=== PATIENT | female | born 1955 | race Caucasian/White ===

== ENCOUNTER 2021-05-03 00:55 | Inpatient (IN) | payer MEDICARE ==
[2021-05-03] VITALS (15 sets, daily range): BP systolic 126–148; BP diastolic 72–83
[~2021-05-03] VITALS: Ht 147.3 cm; Wt 52.3 kg
[2021-05-03 02:29] LABS: BASOPHILS # (AUTO) 0.1 X10'3 (0-0.2); BASOPHILS % (AUTO) 0.5 % (0-1); EOSINOPHILS % (AUTO) 0.2 % (0-6); HEMATOCRIT 41.8 % (35.0-45.0); HEMOGLOBIN 14.5 g/dl (12.0-16.0); LYMPHOCYTES # (AUTO) 1.1 X10'3 (1.1-4.8); LYMPHOCYTES % (AUTO) 7.6 % (21-51); MEAN CORPUSCULAR HEMOGLOBIN 31.4 PG (27.0-31.0); MEAN CORPUSCULAR HGB CONC 34.8 g/dL (33.0-36.5); MEAN CORPUSCULAR VOLUME 90.4 FL (78-98); MEAN PLATELET VOLUME 7.5 FL (7.4-10.4); MONOCYTES # (AUTO) 0.4 X10'3 (0-0.9); MONOCYTES % (AUTO) 3.1 % (2-12); NEUTROPHILS # (AUTO) 12.7 X10'3 (1.8-7.7); NEUTROPHILS % (AUTO) 88.6 % (42-75); PLATELET COUNT 254 X10'3 (140-440); RED BLOOD COUNT 4.62 X10'6 (4.20-5.60); RED CELL DISTRIBUTION WIDTH 12.9 % (11.5-14.5); WHITE BLOOD COUNT 14.3 X10'3 (4.5-11.0)
[2021-05-03 02:40] LABS: ALANINE AMINOTRANSFERASE 30 U/L (12-78); ALBUMIN 4.5 G/DL (3.4-5.0); ALBUMIN/GLOBULIN RATIO 1.1 (1.1-1.5); ALKALINE PHOSPHATASE 96 IU/L (46-116); ANION GAP 9 (8-16); ASPARTATE AMINO TRANSFERASE 20 U/L (10-37); BLOOD UREA NITROGEN 16 MG/DL (7-18); BUN/CREATININE RATIO 16.7 (6.6-38.0); CALCIUM 10.2 MG/DL (8.5-10.1); CHLORIDE 103 MMOL/L (99-107); CREATININE 0.96 MG/DL (0.40-0.90); GLUCOSE 126 MG/DL (70-104); SODIUM 140 MMOL/L (135-145); TOTAL CARBON DIOXIDE 28.1 MMOL/L (24-32); TOTAL PROTEIN 8.6 G/DL (6.4-8.2); eGFR 59 ML/MIN
[2021-05-03 02:45] LABS: LIPASE 166 U/L (73-393)
[2021-05-03] MEDS ORDERED: iohexol 300mg/ml 100ml inj. ONE (04:19)
[2021-05-03 04:41] LABS: CLARITY,URINE CLEAR (Clear); COLOR,URINE YELLOW (Yellow); PH,URINE 6.5 (4.8-8.0); PROTEIN,URINE NEGATIVE (Neg); UA COLLECTION TYPE CLN CATCH MIDSTREAM
[2021-05-03 04:42] LABS: GLUCOSE, URINE NEGATIVE (Neg); KETONES,URINE NEGATIVE (Neg); LEUKOCYTE ESTERASE ,URINE NEGATIVE (Neg); NITRITES, URINE NEGATIVE (Neg); OCCULT BLOOD,URINE TRACE-LYSED (Neg); UROBILINOGEN,URINE 0.2 E.U/dL (0.2-1.0)
[2021-05-03 04:51] LABS: HYALINE CASTS 0-3 /LPF (NEGATIVE); SQUAMOUS EPITHELIAL CELL,UR FEW /LPF (FEW)
[2021-05-03 04:54] LABS: BACTERIA,URINE NONE SEEN /HPF (Neg); MUCUS STRANDS NONE SEEN /LPF (Neg); RBC,URINE NONE SEEN /HPF (0-2); WBC,URINE 0-4 /HPF (0-4)
[2021-05-03] MEDS ORDERED: ampicillin/sulbac 3gm/NS 100ml 100 ML IV ONE (06:35)
[2021-05-03] MEDS ORDERED: ampicillin/sulbac 3gm/NS 100ml 100 ML IV SCH (08:00)
[2021-05-03] MEDS ORDERED: magnesium hydroxide 30ml (MOM) UD suspension PO PRN (08:10)
[2021-05-03] MEDS ORDERED: magnesium 4gm in 100ml NS 100 ML IV PRN (08:10)
[2021-05-03] MEDS ORDERED: HYDROmorphone/PF 0.2 MG/ML SYRINGE IV PRN (08:10)
[2021-05-03] MEDS ORDERED: potassium Cl 20 mEq SR tablet PO PRN ×2 (08:10)
[2021-05-03] MEDS ORDERED: potassium Cl 40MEQ/1/2NS 520ml 520 ML IV PRN ×2 (08:10)
[2021-05-03] MEDS ORDERED: acetaminophen 325mg tablet PO PRN (08:10)
[2021-05-03] MEDS ORDERED: magnesium 2GM in 50ml NS 50 ML IV PRN (08:10)
[2021-05-03] MEDS ORDERED: ondansetron/PF 4mg/2ml inj IV PRN ×2 (08:10→11:20)
[2021-05-03] MEDS ORDERED: HYDROmorphone inj. 0.5 MG/0.5 ML DISP.SYRIN IV PRN (08:10)
[2021-05-03] MEDS ORDERED: mag hydrox/Alum hydrox/simeth 30ml oral suspension PO PRN (08:10)
[2021-05-03 08:14] LABS: PARTIAL THROMBOPLASTIN TIME 28 SECONDS (22-32)
--- NOTE | 2021-05-03 08:23 | NUR ---
zohra shaw [id number] [phone]
[2021-05-03] MEDS ORDERED: pantoprazole 40 MG vial IV SCH (08:35)
[2021-05-03] MEDS ORDERED: hydrALAZINE 20mg/ml inj. IV PRN (08:35)
[2021-05-03] MEDS ORDERED: INDOCYANINE GREEN 25 MG/10 ML VIAL IV ONE (10:00)
[2021-05-03] MEDS: pantoprazole 40 MG vial IV SCH (10:30)
[2021-05-03] MEDS ORDERED: morphine 2 MG/ML inj. syringe IV PRN (11:20)
[2021-05-03] MEDS ORDERED: ringers solution, lacted 1,000 ML IV SCH (11:20)
[2021-05-03] MEDS ORDERED: proCHLORperazine 10 MG/2 ml inj IV PRN (11:20)
[2021-05-03] MEDS ORDERED: meperidine/PF 25mg/ml syringe IV PRN ×3 (11:20)
[2021-05-03] MEDS ORDERED: morphine 4 MG/ML inj SYRINge IV PRN (11:20)
[2021-05-03] MEDS ORDERED: BUPIVAcaine 0.5% inj/PF 30 ML ONE (11:30)
[2021-05-03] MEDS ORDERED: LIDOcaine 1% 30ml preserv. free vial ONE (11:30)
[2021-05-03] MEDS ORDERED: fentaNYL/PF 50MCG/1 ML 2ML syringe ONE (12:05)
[2021-05-03] MEDS ORDERED: midazolam 1 mg/ML 2ml injection ONE (12:06)
[2021-05-03] MEDS ORDERED: propofol inj 20 ML IV ONE (12:06)
[2021-05-03] MEDS ORDERED: rocuronium 10mg/ml inj IV ONE (12:06)
[2021-05-03] MEDS ORDERED: ceFAZolin 1000mg inj ONE ×2 (12:25)
[2021-05-03] MEDS ORDERED: ondansetron/PF 4mg/2ml inj ONE (13:23)
[2021-05-03] MEDS ORDERED: dexamethasone sod phosphate 4mg/ml inj. ONE (13:24)
[2021-05-03] MEDS ORDERED: glycopyrrolate 0.2mg/ml inj ONE (13:25)
[2021-05-03] MEDS ORDERED: neostigmine methylsulfate 1 MG/ML 10ml vial ONE (13:25)
[2021-05-03] MEDS ORDERED: HYDROcodone/acetaminophen 5mg/325mg tablet PO PRN (13:35)
[2021-05-03] MEDS ORDERED: HYDROcodone/acetaminophen 10/325mg tab PO PRN (13:35)
--- NOTE | 2021-05-03 13:50 | NUR ---
Received from OR via BED, accompanied by Anesthesiologist WICHO and report given by Anesthesiolgist. PT SLEEPY, OXYGENATING WELL ON 10 LPM O2 VIA MASK, NO RESP DISTRESS NOTED. PT DENIES NAUSEA OR PAIN AT THIS TIME. LARGE BANDAIDS TO ABD LAP SITES, CDI. SCDS ON, VSS.
--- NOTE | 2021-05-03 15:00 | NUR ---
Report called to receiving nurse. Transferred via BED Belongings WITH PT, TOP DENTURE, BAG OF CLOTHING, AND A PURSE. GRANDSON COMING TO GET PT PURSE. VSS, TOLERATING PO FLUIDS WELL. PT HAD NAUSEA EARLIER THAT WAS RELIEVED BY ZOFRAN. MEDICATED FOR INCISIONAL PAIN WITH IV DEMEROL. PT REPORTS GOOD RELIEF. TRANSFERRED TO [facility] IN STABLE CONDITION. Special Issues communicated to receiving nurse.
--- NOTE | 2021-05-03 15:30 | NUR ---
Pt. arrived to floor. Placed on post-op VS. VSS at this time. Pt. c/o no pain. Thirsty. Ice chips provided. Pt. swallowing well. Oriented to room. Call light and phone given to pt.
--- NOTE | 2021-05-03 16:45 | NUR ---
PAGER ID: [phone] MESSAGE: Sangita Dariana 346A Back from sx. DARTING her and she would like to be limited code no intubation please change orders. Thank you Fernanda [phone]
[2021-05-03] MEDS: piperacillin/tazo 4.5gm/100ml 100 ML IV SCH (16:54)
--- NOTE | 2021-05-03 18:30 | NUR ---
Patient in room [facility]AG[facility] 346. I have received report from Fernanda SILVER and had the opportunity to ask questions and assume patient care.
--- NOTE | 2021-05-03 18:37 | NUR ---
Gave report to Karen SILVER.
[2021-05-03] MEDS ORDERED: enoxaparin 40mg/0.4ml syringe SQ SCH (20:00)
[2021-05-03] MEDS: K and/or MAG REPLACEMENT MC SCH (20:00)
--- NOTE | 2021-05-03 20:16 | NUR ---
promotional table spacer PAGER ID: [phone] MESSAGE: Room 346A S/P surgery N Pettiit. Please can we switch the Eldred for Tylenol number please. This is what she states works for her. Do not want to give her dilaudid - doesn't need it. Mandy Jones [phone] ([phone] character message out of a maximum of [phone])
[2021-05-03] MEDS: docusate sod 100mg capsule PO SCH (20:33)
[2021-05-03] MEDS: heparin, porcine 5000 units/ml vial SQ SCH (20:33)
[2021-05-03] MEDS ORDERED: acetaminophen w/codeine (30MG) #3 tablet PO PRN (21:20)
[2021-05-04] VITALS: BP 130/75
[2021-05-04] MEDS: piperacillin/tazo 4.5gm/100ml 100 ML IV SCH ×3 (00:20→16:00)
[2021-05-04 04:00] VITALS: BP 121/63
--- NOTE | 2021-05-04 06:10 | NUR ---
Patient in room [facility]AGAN[facility] 346. I have received report from NADEEM Jones and had the opportunity to ask questions and assume patient care.
--- NOTE | 2021-05-04 06:30 | NUR ---
Problems reprioritized. Patient report given, questions answered & plan of care reviewed with Junie SILVER.
[2021-05-04 06:38] LABS: ALANINE AMINOTRANSFERASE 424 U/L (12-78); ALBUMIN 3.5 G/DL (3.4-5.0); ALBUMIN/GLOBULIN RATIO 0.9 (1.1-1.5); ALKALINE PHOSPHATASE 91 IU/L (46-116); ANION GAP 10 (8-16); ASPARTATE AMINO TRANSFERASE 587 U/L (10-37); BILIRUBIN,TOTAL 3.2 MG/DL (0.1-1.0); BLOOD UREA NITROGEN 10 MG/DL (7-18); BUN/CREATININE RATIO 8.3 (6.6-38.0); CALCIUM 9.1 MG/DL (8.5-10.1); CHLORIDE 105 MMOL/L (99-107); CREATININE 1.21 MG/DL (0.40-0.90); GLUCOSE 108 MG/DL (70-104); POTASSIUM 3.6 MMOL/L (3.5-5.1); SODIUM 145 MMOL/L (135-145); TOTAL PROTEIN 7.3 G/DL (6.4-8.2); eGFR 45 ML/MIN
[2021-05-04 06:47] LABS: BASOPHILS % (AUTO) 0.3 % (0-1); EOSINOPHILS % (AUTO) 0.2 % (0-6); HEMATOCRIT 37.3 % (35.0-45.0); LYMPHOCYTES # (AUTO) 1.4 X10'3 (1.1-4.8); LYMPHOCYTES % (AUTO) 16.3 % (21-51); MEAN CORPUSCULAR HEMOGLOBIN 31.9 PG (27.0-31.0); MEAN CORPUSCULAR HGB CONC 34.9 g/dL (33.0-36.5); MEAN CORPUSCULAR VOLUME 91.4 FL (78-98); MEAN PLATELET VOLUME 7.7 FL (7.4-10.4); MONOCYTES # (AUTO) 0.7 X10'3 (0-0.9); MONOCYTES % (AUTO) 8.4 % (2-12); NEUTROPHILS # (AUTO) 6.6 X10'3 (1.8-7.7); NEUTROPHILS % (AUTO) 74.8 % (42-75); PLATELET COUNT 247 X10'3 (140-440); RED BLOOD COUNT 4.08 X10'6 (4.20-5.60); RED CELL DISTRIBUTION WIDTH 13.2 % (11.5-14.5); WHITE BLOOD COUNT 8.8 X10'3 (4.5-11.0)
[2021-05-04 07:00] VITALS: BP 94/58
--- NOTE | 2021-05-04 07:15 | NUR ---
Patient in room [facility] 346. I have received report from Karen SILVER and had the opportunity to ask questions and assume patient care.
[2021-05-04] MEDS: K and/or MAG REPLACEMENT MC SCH (08:00)
[2021-05-04] MEDS: docusate sod 100mg capsule PO SCH (08:12)
[2021-05-04] MEDS: pantoprazole 40 MG vial IV SCH (08:12)
[2021-05-04] MEDS: heparin, porcine 5000 units/ml vial SQ SCH (08:13)
--- NOTE | 2021-05-04 10:00 | NUR ---
Student documentation: I have reviewed and agree with all interventions, assessments performed and documented by Joanie Acosta [place] Student.
--- NOTE | 2021-05-04 10:15 | NUR ---
pt's daughter called..concerned that her mom has to stay one more day. pt's family (Daughter lives out of state), are going out of state grandson traveling with her. Pt wants to ask Dr nails about DC.
[2021-05-04 11:00] VITALS: BP 115/61
--- NOTE | 2021-05-04 12:23 | NUR ---
PAGER ID: [phone] MESSAGE: Anjel Dond#[phone]- Called lab and they stated that C & S is in the "growth" base. No idea when the results will be in. Please advise if we need to proceed with DC. Thank you Junie Garrett Addendum: 05/04/21 at 1340 by Junie Chacon RN wrong pt
--- NOTE | 2021-05-04 13:05 | NUR ---
Dr. Nails contacted, he wanted to have pt educated about why she is here and her lab values are elevated. Pt states she wants to go home "she does not want to ruin family plans". Dr. nails ordered [facility] Stat to check values. Order for STAT labs will be order.
--- NOTE | 2021-05-04 13:51 | NUR ---
pt will be DC home, grandson will come get her. Stat CMP ordered. Called Jeanne, Pt's daughter and she was updated. She still wants her mom to go home and travel via airplane.
[2021-05-04 14:27] LABS: ALANINE AMINOTRANSFERASE 341 U/L (12-78); ALBUMIN 3.3 G/DL (3.4-5.0); ALBUMIN/GLOBULIN RATIO 0.9 (1.1-1.5); ALKALINE PHOSPHATASE 81 IU/L (46-116); ANION GAP 10 (8-16); ASPARTATE AMINO TRANSFERASE 273 U/L (10-37); BILIRUBIN,TOTAL 1.9 MG/DL (0.1-1.0); BLOOD UREA NITROGEN 12 MG/DL (7-18); CALCIUM 8.7 MG/DL (8.5-10.1); CHLORIDE 106 MMOL/L (99-107); CREATININE 1.34 MG/DL (0.40-0.90); GLUCOSE 110 MG/DL (70-104); POTASSIUM 3.5 MMOL/L (3.5-5.1); SODIUM 145 MMOL/L (135-145); TOTAL CARBON DIOXIDE 28.7 MMOL/L (24-32); TOTAL PROTEIN 6.9 G/DL (6.4-8.2); eGFR 40 ML/MIN
--- NOTE | 2021-05-04 14:40 | NUR ---
PAGER ID: [phone] MESSAGE: Sangita [place]brook #[phone]- Pt's daughter called several times, apparently they have family functions & want her DC today. Pt Agrees. is aware. Dr nails. had his office call her pain meds. We can go ahead and DC.Thank you. [id number]
== END 2021-05-04 17:40 | disposition home health service (06) | DRG 419 ==
LOC: ER 00:56 → ED HOLD 08:16 → SUR 3N 15:17
PROVIDERS: ADMIT Family Medicine; ATTEND Family Medicine
PROC: 8E0W4CZ Robotic Assisted Procedure of Trunk Region, Percutaneous Endoscopic Approach (ICD-10-PCS; 2021-05-03)
PROC: BF532Z0 Other Imaging of Gallbladder and Bile Ducts using Fluorescing Agent, Intraoperative (ICD-10-PCS; 2021-05-03)
PROC: BW211ZZ Computerized Tomography (CT Scan) of Abdomen and Pelvis using Low Osmolar Contrast (ICD-10-PCS; 2021-05-03)
PROC: 0FT44ZZ Resection of Gallbladder, Percutaneous Endoscopic Approach (ICD-10-PCS; principal; 2021-05-03 12:03)
DX: K80.00 Calculus of gallbladder with acute cholecystitis without obstruction (principal); Z20.822 Contact with and (suspected) exposure to COVID-19; R74.01 Elevation of levels of liver transaminase levels; R03.0 Elevated blood-pressure reading, without diagnosis of hypertension; D72.829 Elevated white blood cell count, unspecified; F17.210 Nicotine dependence, cigarettes, uncomplicated; K21.9 Gastro-esophageal reflux disease without esophagitis; Z82.49 Family history of ischemic heart disease and other diseases of the circulatory system; Z98.2 Presence of cerebrospinal fluid drainage device
CPT/HCPCS: 36415; 71045; 74177; 80053; 81001; 83690; 83735; 84484; 85025; 85610; 85730; 87081; 87635; 88304; 92508; 92616; 93005; 96360; 99285; A4215; A4618; A7000; C9113; C9803; G0378; J0295; J0690; J1100; J1644; J2001; J2175; J2250; J2405; J2543; J2704; J2710; J3010; J3490; J7030; Q9967

== ENCOUNTER 2025-01-03 06:27 | Emergency (ER) | payer MEDICARE ==
[~2025-01-03] VITALS: Ht 147.3 cm; Wt 60.5 kg
--- NOTE | 2025-01-03 06:44 | Physician Documentation ---
History of Present Illness ~ Chief Complaint: Flank Pain Stated Complaint: FLANK PAIN Time Seen by : 06:43 HPI Patient presents to the emergency room for evaluation of left-sided back pain. She has had nothing for the pain. This has been going on for this past week. N o injuries reported. No dysuria. Medication Reconciliation Allergies: Coded Allergies: No Known Allergies (Unverified , 01/03/25) No Active Prescriptions or Reported Meds Past Medical History Past Medical History: No Pertinent History Past Surgical History: no surgical history Patient History: FH: congestive heart failure Maternal Grandmother Alcohol Use: None Drug Use: none Lives In: Home Review of Systems ROS All review of systems negative except as per HPI Physical Exam Vital Signs: Temperature: 97.0, Source: Temporal, Heart Rate: 90, Respiratory Rate: 18, BP: 176/61, Pulse Oximetry: 98, Weight: 60.550 Oxygen Flow Rate: 0 Physical Exam General: Patient is awake, alert, oriented x4 in no acute distress Head: Normocephalic and atraumatic. Eyes: Conjunctival normal. EOMI. PERRL. ENT: Mucous membranes moist. Neck: Supple, trachea is midline. Chest: Clear to auscultation bilaterally without rales, rhonchi, or wheezes. There is no accessory muscle use or retractions. Cardiac: RRR without murmurs, gallops, or rubs. Abd: Soft, nondistended, nontender, with normoactive bowel sounds. No guarding, rebound, or rigidity. Extremities: Normal strength. Normal range of motion. No deformities or edema. Back: Tenderness to palpation to left lumbar paraspinal musculature. No rash Progress Results/Orders Results/Orders Orders - LANRDY KUMAR MD Ct Abdomen Pelvis (01/03/25 07:54) Completed Orders - LANDRY KUMAR MD Ct Abdomen Pelvis (01/03/25 07:54) Ondansetron Disint. Tablet (Zofran Odt T (01/03/25 06:55) Ibuprofen Tablet (Motrin Tablet) (01/03/25 06:55) Acetaminophen 325mg Tablet (Tylenol Tabl (01/03/25 06:55) Hydrocodone/Apap 5/325mg Tab (Cascadia 5/32 (01/03/25 06:55) Famotidine Tablet (Pepcid Tablet) (01/03/25 07:15) Medications Received in ER Medications (Trade) Dose Ordered Sig/Liu Route PRN Reason Start Time Stop Time Status Last Admin Dose Admin (Zofran ODT tablet) 4 mg ONCE ONCE PO 01/03/25 06:55 01/03/25 06:56 DC 01/03/25 07:09 4 MG (Motrin tablet) 800 mg ONCE ONCE PO 01/03/25 06:55 01/03/25 06:56 DC 01/03/25 07:11 800 MG (Cascadia 5/325mg tablet) 1 tab ONCE ONCE PO 01/03/25 06:55 01/03/25 06:56 DC 01/03/25 07:08 1 TAB (Tylenol tablet) 650 mg ONCE ONCE PO 01/03/25 06:55 01/03/25 07:01 DC 01/03/25 07:09 650 MG (Pepcid tablet) 20 mg ONCE ONCE PO 01/03/25 07:15 01/03/25 07:16 DC 01/03/25 07:15 20 MG Vital Signs 01/03/25 01/03/25 01/03/25 01/03/25 06:32 06:51 06:58 07:08 Temp 97.0 97.0 Pulse 90 86 Resp 18 15 16 15 B/P (MAP) 176/61 155/90 (111) Pulse Ox 98 100 O2 Flow Rate 0 0 Laboratory Tests Test 01/03/25 06:58 01/03/25 07:00 Urine Specimen Description Cln catch midstream Urine Color Yellow Urine Clarity Clear Urine pH 5.5 Urine Specific Gonzales >=1.030 Urine Protein 100 H Urine Glucose (UA) Negative Urine Ketones 15 H Urine Occult Blood Negative Urine Nitrite Negative Urine Bilirubin Negative Urine Urobilinogen 0.2 Urine Leukocyte Esterase Negative Urine RBC None seen Urine WBC 5-10 H Urine Squamous Epithelial Cells Moderate Urine Bacteria 1+ Urine Mucus Few Urine Culture Indicated Indicated Volume Urine Centrifuged 6 ml Urine Comment Low volume White Blood Count 6.8 Red Blood Count 4.37 Hemoglobin 13.6 Hematocrit 39.7 Mean Corpuscular Volume 90.9 Mean Corpuscular Hemoglobin 31.0 Mean Corpuscular Hemoglobin Concent 34.2 Red Cell Distribution Width 13.2 Platelet Count 202 Mean Platelet Volume 7.8 Neutrophils (%) (Auto) 67.7 Lymphocytes (%) (Auto) 24.9 Monocytes (%) (Auto) 4.8 Eosinophils (%) (Auto) 1.6 Basophils (%) (Auto) 1.0 Neutrophils # (Auto) 4.6 Lymphocytes # (Auto) 1.7 Monocytes # (Auto) 0.3 Eosinophils # (Auto) 0.1 Basophils # (Auto) 0.1 CBC Comment Sodium Level 138 Potassium Level 3.4 L Chloride Level 102 Carbon Dioxide Level 25.2 Anion Gap 11 Blood Urea Nitrogen 27 H Creatinine 0.85 Estimated GFR/1.73 m2 67 BUN/Creatinine Ratio 31.8 H Glucose Level 110 H Calcium Level 9.3 Total Bilirubin 1.2 H Aspartate Amino Transf (AST/SGOT) 22 Alanine Aminotransferase (ALT/SGPT) 31 Alkaline Phosphatase 95 Total Protein 8.2 Albumin 4.3 Globulin 3.9 Albumin/Globulin Ratio 1.1 Lipase 51 Chemistry Comments Medical Decision Making Findings Patient presents to the emergency room with back pain as per HPI. Differentials include but are not limited to musculoskeletal pain, kidney stone, aortic pathology, referred pain therefore emergent labs and imaging indicated. CT scan shows some constipation however she declines symptoms of this. I will give her some pain medication along with stool softeners. Patient also has history of reflux and I will treat her for this is well. I do not suspect aortic pathology given tenderness to palpation to the musculature in her back. Departure Disposition: HOME / SELF CARE / HOMELESS Impression: Primary Impression: Low back pain Additional Impression: Constipation Condition: Stable Discharge Instructions: Lumbosacral Strain Referrals: NO PRIMARY CARE PROVIDER (PCP) Prescriptions Hydrocodone Bit/Acetaminophen 5/325 MG (Cascadia 5/325 MG) 5 Mg/325 Mg Tablet 1 TAB PO Q4-6 hours PRN for pain, #20 TAB Prov: LANDRY KUMAR MD 01/03/25 Docusate Sodium (Dulcolax Stool Softener) 100 Mg Capsule 1 CAP PO Q12H for 30 Days, #60 CAP 0 Refills Prov: LANDRY KUMAR MD 01/03/25 Pantoprazole Sodium (PROTONIX tablet) 40 Mg Tablet. 1 TAB PO DAILY for 30 Days, #30 TAB 0 Refills Prov: LANDRY KUMAR MD 01/03/25 Education Educated: Patient Educated regarding: diagnosis, treatment, need for follow up Signature Scribe Signature: No scribe Attestation: The note accurately reflects work and decisions made by me.Landry Kumar MD 01/03/25 08:37 LANDRY KUMAR MD Jan 03, 2025 06:43
[2025-01-03 06:58] VITALS: TEMP 97; O2SAT 100
[2025-01-03] MEDS: HYDROcodone/acetaminophen 5mg/325mg tablet PO ONE (07:08)
[2025-01-03] MEDS: ondansetron 4mg rapidly disintigrating tab PO ONE (07:09)
[2025-01-03] MEDS: ibuprofen tablet 400 MG TABLET PO ONE (07:11)
[2025-01-03 07:12] LABS: MEAN PLATELET VOLUME 7.8 FL (7.4-10.4); RED CELL DISTRIBUTION WIDTH 13.2 % (11.5-14.5)
[2025-01-03 07:21] LABS: LEUKOCYTE ESTERASE ,URINE NEGATIVE (Neg); NITRITES, URINE NEGATIVE (Neg); OCCULT BLOOD,URINE NEGATIVE (Neg)
[2025-01-03 07:29] LABS: UA COLLECTION TYPE CLN CATCH MIDSTREAM
[2025-01-03 07:32] LABS: MUCUS STRANDS FEW /LPF (Neg); SQUAMOUS EPITHELIAL CELL,UR MODERATE /LPF (FEW)
[2025-01-03 07:52] LABS: CREATININE 0.85 MG/DL (0.40-0.90); TOTAL CARBON DIOXIDE 25.2 MMOL/L (24-32); eCRCL 41 ML/MIN; eGFR 67 ML/MIN
--- NOTE | 2025-01-03 08:20 | RADIOLOGY REPORT ---
EXAM: CT Abdomen and Pelvis Without Intravenous Contrast CLINICAL INDICATION: Pain TECHNIQUE: Axial computed tomography images of the abdomen and pelvis without intravenous contrast. This CT exam was performed using one or more of the following dose reduction techniques: automated exposure control, adjustment of the mA and/or kV according to patient size, and/or use of iterative r econstruction technique. COMPARISON: No relevant prior studies available. FINDINGS: LUNG BASES: Unremarkable. No mass. No consolidation. MEDIASTINUM: Small esophageal hiatal hernia. ABDOMEN: LIVER: Fatty infiltration of the liver. GALLBLADDER AND BILE DUCTS: Unremarkable. No calcified stones. No ductal dilation. PANCREAS: Unremarkable. No ductal dilation. SPLEEN: Unremarkable. No splenomegaly. ADRENALS: Unremarkable. No mass. KIDNEYS AND URETERS: Bilateral renal cysts. No stones within either kidney. No hydronephrosis. STOMACH AND BOWEL: Fecal retention in the colon consistent with constipation. No obstruction. No m ucosal thickening. PELVIS: APPENDIX: Normal appendix. BLADDER: Unremarkable. No stones. REPRODUCTIVE: Unremarkable as visualized. ABDOMEN and PELVIS: INTRAPERITONEAL SPACE: Unremarkable. No free air. No significant fluid collection. BONES/JOINTS: No acute fracture. No dislocation. SOFT TISSUES: Unremarkable. VASCULATURE: Scattered calcified atherosclerotic disease of aorta. No abdominal aortic aneurysm. LYMPH NODES: Unremarkable. No enlarged lymph nodes. IMPRESSION: 1. Normal appendix. 2. Small esophageal hiatal hernia. 3. Fecal retention in the colon consistent with constipation. 4. No obstructive uropathy.
[2025-01-03] MEDS ORDERED: PANT-47 PO (08:36)
[2025-01-03] MEDS ORDERED: HYDR-3965 PO (08:36)
[2025-01-03] MEDS ORDERED: DOCU-171 PO (08:36)
[2025-01-03 08:58] VITALS: BP 147/70; PULSE 78; RESP 16
== END 2025-01-03 09:09 | disposition home or self-care (01) ==
LOC: ER 06:28
DX: M54.50 Low back pain, unspecified (principal); K59.00 Constipation, unspecified
CPT/HCPCS: 36415; 74176; 80053; 81001; 83690; 85025; 87088; 99284